=== PATIENT | female | born 1970 | race Caucasian/White ===

== ENCOUNTER 2016-07-07 19:40 | Emergency (ER) | payer BC ==
[~2016-07-07] VITALS: Wt 80.0 kg
[~2016-07-07 19:40] MED LIST: BENADRYL
[2016-07-07 19:45] VITALS: Wt 80.0 kg
--- NOTE | 2016-07-07 20:26 | ERA ---
ER Documentation Chief Complaint Date/Time DATE: 07/07/16 TIME: 20:26 Chief Complaint RIGHT LOWER LEG PAIN FOR 2 DAYS. NO SOB. NO REDNESS HPI The patient is a 45-year-old female, presenting to the ER because of left lower extremity swelling for 2 days. She denies similar symptoms previously, the pain is minimal, denies any recent traveling or taking control pill. She denies fever, neck pain, chest pain, dyspnea, abdominal pain, vomiting. She does not smoke or drink Past medical history: None Past surgical history: Cholecystectomy, , D&C ROS All systems reviewed and are negative except as per history of present illness. Medications Home Meds Reported Medications [Benadryl] No Conflict Check, 1 TAB HS 11/16/11 Allergies Allergies: Coded Allergies: No Known Allergy (Unverified , 11/16/11) PMhx/Soc History of Surgery: Yes (arabella, csection, hernia) Anesthesia Reaction: No Hx Neurological Disorder: No Hx Respiratory Disorders: No Hx Cardiac Disorders: No Hx Psychiatric Problems: No Hx Miscellaneous Medical Probl: No Hx Alcohol Use: No Hx Substance Use: No Hx Tobacco Use: No Physical Exam Vitals Vital Signs Date Time Temp Pulse Resp B/P Pulse Ox O2 Delivery O2 Flow Rate FiO2 07/07/16 21:43 98.4 78 20 142/86 97 Room Air 07/07/16 19:45 98.6 86 20 145/88 98 Physical Exam Const: No acute distress. Head: Atraumatic. Eyes: Normal Conjunctiva. ENT: Normal External Ears, Nose and Mouth. Neck: Full range of motion. No meningismus. Resp: Clear to auscultation bilaterally. Cardio: Regular rate and rhythm, no murmurs. Abd: Soft, non distended, normal bowel sounds, non tender. Skin: No petechiae or rashes. Back: No midline or flank tenderness. Ext: Left lower extremity is minimally edema, minimal calf tenderness , no erythema, no vesicle, no petechia Neur: Awake and alert. No focal deficit Psych: Normal Mood and Affect. Results 24 hrs Current Medications Medications (Trade) Dose Ordered Sig/Jami Route PRN Reason Start Time Stop Time Status Last Admin Dose Admin Acetaminophen/ Hydrocodone Bitart ([place] (5/325)) 1 tab ONCE ONCE PO 07/07/16 21:00 07/07/16 21:01 DC 07/07/16 21:19 Ondansetron HCl (Zofran Odt) 4 mg ONCE STAT ODT 07/07/16 20:50 07/07/16 20:52 DC 07/07/16 21:19 Procedures/MDM [place] [address] Radiology Main Line: [phone] DIAGNOSTIC IMAGING REPORT Patient: RAHEEL BENITEZ : 1970 Age: 45 Sex: F MR #: [id number] DOS: 07/07/162049 Ordering MD: SHAYLA OSCAR MD Location: E/R Room/Bed: PROCEDURE: US Lower extremity Venous. CLINICAL INDICATION: Left leg edema TECHNIQUE: Multiple sonographic images of the left lower extremity deep venous system was obtained utilizing grayscale, color-flow, compressive sonography and doppler imaging with augmentation. The images were reviewed on a PACS workstation. COMPARISON: None. FINDINGS: There is normal compressibility and flow within the left common femoral, femoral , posterior tibial, peroneal and popliteal veins. RPTAT: AA IMPRESSION: No sonographic evidence for deep venous thrombosis. .Issac Leger MD, MD Date Time Electronically viewed and signed by .Issac Leger MD, on 07/07/2016 21: 35 .S/ CC: SHAYLA OSCAR MD MEDICAL MAKING DECISION: The patient is a 45-year-old female, presenting with isolated left lower extremity edema of unclear etiology. She was treated with [place] 5 mg p.o. for pain and Zofran ODT for nausea with good response. The differential diagnoses considered include but are not limited to DVT, cellulitis, lymphedema, dependent edema Departure Diagnosis: Primary Impression: Mild peripheral edema Condition: Good Comments She was discharged with Motrin I discussed the findings with the patient. I advised the patient to follow-up with the primary physician in about 1-2 days, sooner if needed and return if any concern. The patient's blood pressure was elevated (>120/80) but appears stable without evidence of hypertension emergency or urgency. The patient was counseled about the risks of hypertension and urged to pursue outpatient monitoring and therapy within a week with their primary care physician. SHAYLA OSCAR MD July 07, 2016 20:26
[2016-07-07] MEDS ORDERED: ONDANSETRON (ODT) 4 MG TAB ODT STA (20:50)
[2016-07-07] MEDS ORDERED: HYDROCODONE/APAP (5/325) TAB PO ONE (21:00)
--- NOTE | 2016-07-07 21:35 | RADRPT ---
PROCEDURE: US Lower extremity Venous. CLINICAL INDICATION: Left leg edema TECHNIQUE: Multiple sonographic images of the left lower extremity deep venous system was obtained utilizing grayscale, color-flow, compressive sonography and doppler imaging with augmentation. The images were reviewed on a PACS workstation. COMPARISON: None. FINDINGS: There is normal compressibility and flow within the left common femoral, femoral, posterior tibial, peroneal and popliteal veins. RPTAT: AA IMPRESSION: No sonographic evidence for deep venous thrombosis. .Issac Leger MD, MD Date Time Electronically viewed and signed by .Issac Leger MD, on 07/07/2016 21:35 .S/
[2016-07-07 21:43] VITALS: BP 142/86; PULSE 78; RESP 20; TEMP 98.4
== END 2016-07-07 21:41 | disposition home or self-care (01) ==
LOC: E/R 19:40
DX: R60.0 Localized edema (principal)
CPT/HCPCS: 93971; Z7610

== ENCOUNTER → 2017-10-24 | Day surgery (SDC) | END | disposition home or self-care (01) ==